=== PATIENT | male | born 1980 | race Hispanic/Latino ===

== ENCOUNTER 2024-10-13 02:04 | Emergency (ER) | payer OTHER | END 2024-10-13 04:17 | LOC: NAV ERS 02:04 → EEVIPCON 02:04 → NAV ERS 04:17 | DX: S02.2XXA Fracture of nasal bones, initial encounter for closed fracture (principal); Z87.891 Personal history of nicotine dependence; W22.8XXA Striking against or struck by other objects, initial encounter; Y92.149 Unspecified place in prison as the place of occurrence of the external cause | CPT/HCPCS: 70450; 70486; 94760 ==